=== PATIENT | male | born 1970 | race Caucasian/White ===

== ENCOUNTER 2018-04-29 11:30 | Emergency (ER) | payer SELFPAY ==
[~2018-04-29] VITALS: Ht 180.3 cm; Wt 85.9 kg
[2018-04-29 11:42] VITALS: BP 149/97
[2018-04-29] MEDS ORDERED: LITH300C3 PO (11:49)
[2018-04-29] MEDS ORDERED: OMEP10 PO (11:49)
[2018-04-29 11:55] LABS: GLUCOSE,POINT OF CARE 171 MG/DL (70-110)
== END 2018-04-29 13:28 | disposition left against medical advice (07) ==
LOC: EMS 11:32
DX: R53.1 Weakness (principal); Z53.21 Procedure and treatment not carried out due to patient leaving prior to being seen by health care provider